=== PATIENT | female | born 1950 | race Caucasian/White ===

== ENCOUNTER 2019-03-26 06:42 | Emergency (ER) | payer MEDICARE ==
[2019-03-26 07:46] LABS: ALBUMIN 4.1 g/dL (3.5-5.0); BILIRUBIN,TOTAL 0.6 mg/dL (0.2-1.0); CREATININE 0.7 mg/dL (0.5-1.5); CRP QUANTITATIVE 48.9 mg/L (0.00-9.0); POTASSIUM 4.4 mmol/L (3.5-5.1); TOTAL PROTEIN, SERUM 7.5 g/dL (6.0-8.3)
[2019-03-26 07:58] LABS: BASOPHILS % (AUTO) 0.5 % (0.0-5.0); EOSINOPHILS % (AUTO) 1.7 % (0.0-8.0); HEMATOCRIT 44.5 % (36-48); MEAN CORPUSCULAR HEMOGLOBIN 32.3 pg (27.0-33.0); MEAN CORPUSCULAR HGB CONC 34.6 g/dL (32.0-36.0); MEAN CORPUSCULAR VOLUME 93.3 fL (79-99); MONOCYTES % (AUTO) 8.8 % (3.0-13.0); PLATELET COUNT (AUTO) 191 K/uL (130-400); RED BLOOD CELL COUNT(AUTO) 4.76 MIL/uL (4.00-5.50); RED CELL DISTRIBUTION WIDTH 12.5 % (11.0-15.5); WHITE BLOOD COUNT (AUTO) 10.9 K/uL (4.8-10.8)
[2019-03-26] MEDS ORDERED: CLINDAMYCIN 600 MG/D5% WATER 50 ML IV ONE (08:24)
[2019-03-26] MEDS ORDERED: TRAMADOL HCL 50 MG TABLET ONE (08:25)
[2019-03-26 08:34] LABS: ERYTHROCYTE SEDIMENTATION RATE 0 MM/HR (0-30)
[2019-03-26] MEDS ORDERED: KETOROLAC TROMETHAMINE 15MG/ML ONE (09:20)
== END 2019-03-26 10:01 | disposition home or self-care (01) ==
LOC: EDH 06:42
DX: L03.313 Cellulitis of chest wall (principal); R03.0 Elevated blood-pressure reading, without diagnosis of hypertension; E78.00 Pure hypercholesterolemia, unspecified
CPT/HCPCS: 36415; 80053; 85025; 85651; 86140; 96365; 96375; 99285; J1885; J3490

== ENCOUNTER → 2020-08-19 | Outpatient (CLI) | payer MEDICARE ==
[2020-08-19 12:55] LABS: CREATININE 0.6 mg/dL (0.5-1.5)
== END | disposition home or self-care (01) ==
LOC: LAB 10:29
PROVIDERS: ATTEND Neurological Surgery
DX: G57.01 Lesion of sciatic nerve, right lower limb (principal)
CPT/HCPCS: 36415; 82565; 84520

== ENCOUNTER → 2020-08-26 | Outpatient (CLI) | payer MEDICARE ==
[~2020-08-26] MED LIST: GADOTERATE MEGLUMINE 10 MMOL/20 ML VIAL IV ONE
== END | disposition home or self-care (01) ==
LOC: RAH 07:40
PROVIDERS: ATTEND Neurological Surgery
DX: G57.01 Lesion of sciatic nerve, right lower limb (principal); M41.86 Other forms of scoliosis, lumbar region
CPT/HCPCS: 72197; A9575

== ENCOUNTER → 2020-09-10 | Outpatient (CLI) | payer MEDICARE | END | disposition home or self-care (01) | LOC: RAH 12:43 | PROVIDERS: ATTEND Physical Medicine & Rehabilitation | DX: M47.817 Spondylosis without myelopathy or radiculopathy, lumbosacral region (principal); M48.07 Spinal stenosis, lumbosacral region; M25.78 Osteophyte, vertebrae | CPT/HCPCS: 72110 ==

== ENCOUNTER → 2020-09-26 | Outpatient (CLI) | payer MEDICARE | END | disposition home or self-care (01) | LOC: RAH 08:46 | PROVIDERS: ATTEND Physical Medicine & Rehabilitation | DX: M47.816 Spondylosis without myelopathy or radiculopathy, lumbar region (principal); M48.061 Spinal stenosis, lumbar region without neurogenic claudication; M54.30 Sciatica, unspecified side; M51.36 Other intervertebral disc degeneration, lumbar region; M85.88 Other specified disorders of bone density and structure, other site | CPT/HCPCS: 72131 ==

== ENCOUNTER → 2024-11-14 | Outpatient (CLI) | payer MEDICARE ==
--- NOTE | 2024-11-20 16:40 | HMCIMG ---
EXAM: CR Lumbar Spine, 4 View. CLINICAL HISTORY: LBP COMPARISON: None provided. FINDINGS: BONES: No acute fracture or aggressive appearing osseous lesion. ALIGNMENT: Alignment is within normal limits. No significant scoliosis. DISCS / DEGENERATIVE CHANGES: Postoperative changes. Multilevel laminectomy. Disc replacements evident. Mild to moderate degenerative changes. SOFT TISSUES: The soft tissues are unremarkable. MISCELLANEOUS: No intersegmental instability with flexion extension IMPRESSION: 1. Postoperative changes. Multilevel laminectomy. Disc replacements evident. 2. Mild to moderate degenerative changes. 3. No intersegmental instability with flexion extension /[place]
== END | disposition home or self-care (01) ==
LOC: RAH 10:04
PROVIDERS: ATTEND Physician Assistant
DX: M47.816 Spondylosis without myelopathy or radiculopathy, lumbar region (principal); M54.51 Vertebrogenic low back pain; Z98.890 Other specified postprocedural states
CPT/HCPCS: 72114

== ENCOUNTER → 2025-01-11 | Outpatient (CLI) | payer MEDICARE ==
--- NOTE | 2025-01-11 14:55 | HMCIMG ---
CLINICAL INDICATION: Age-related osteoporosis without current pathological fracture COMPARISON: None available TECHNIQUE: Bone densitometry is performed of the lumbar spine and left hip. FINDINGS: Total BMD of left radius is 0.457 g/cm2 with a T-score of -2.3 and Z-score is 0.0. Total BMD of left hip is 0.782 g/cm2 with a T-score of -1.3 and Z-score is 0.4. FRAX SCORE: The 10 year fracture risk for a major osteoporotic fracture and hip fracture 8.8% IMPRESSION: 1. Osteopenia of the left hip 2. Osteoporosis of the left wrist 3. I would recommend follow-up in 13 months World Health Organization criteria for BMD interpretation classify patients as Normal (T-score at or above -1.0), Osteopenic (T-score between -1.0 and -2.5), or Osteoporotic (T-score at or below -2.5). FRAX SCORE: A. All treatment decisions require clinical judgment and consideration of individual patient factors, including patient preferences, comorbidities, previous drug use, risk factors not captured in the FRAX model (e.g., frailty, falls, vitamin D deficiency, increased bone turnover, interval significant decline in bone density) and possible [id number]-estimation of fracture risk by FRAX. B. In addition, the NOF Guide recommends that FDA-approved medical therapies be considered in postmenopausal women and men age greater than or equal to 50 years with a: i. Hip or vertebral (clinical or morphometric) fracture. ii. T-score of less than or equal to -2.5 at the spine or hip. iii. Ten-year fracture probability by FRAX of greater than or equal to 3% for hip fracture of greater than or equal to 20% for major osteoporotic fracture.
== END | disposition home or self-care (01) ==
LOC: RAH 07:38
PROVIDERS: ATTEND Neurological Surgery
DX: M81.0 Age-related osteoporosis without current pathological fracture (principal); M85.89 Other specified disorders of bone density and structure, multiple sites
CPT/HCPCS: 77080